=== PATIENT | male | born 1975 | race Caucasian/White ===

== ENCOUNTER 2023-11-30 21:49 | Emergency (ER) | payer MEDICAID, SELFPAY ==
[2023-11-30 21:50] VITALS: BP 161/107; PULSE 128; RESP 20; TEMP 37.2; O2SAT 98
--- OUTSIDE RECORDS SUMMARY | 2023-11-30 22:05 | XMS_ITS | Encounter Summary ---
Author Organization [facility] Address [address] [place] [address] Care Team Providers Care Federal Appellate Law Clerk Name Role Phone Kianna Moya AIRCRAFT MECHANIC ARMAMENT Primary Care Provider [phone] Reason for Visit * Reason Comments Wrist Pain Pt to ED with left w rist pain for past 2 weeks s/p being twisted Encounter Details Date Type Department Care Team (Late st Contact Info) Description 11/25/2009 9:42 EDT - 11/25/2009 11:03 EDT Emergency [facility] Emergency Department - [address] [address] Evaristo Lujan, PAJess [address] [place], [place] [id number] Emergency, MD Good Tendinitis of wrist Discharge Disposition: Home or Self Care Social History Tobacco Use Types Packs/Day Years Used Date Smoking Tobacco: Every Day Cigarettes 0.5 5 Alcohol Use Standard Drinks/Week Comments No 0 (1 standard drink = 0.6 oz pur e alcohol) Sex and Gender Information Value Date Recorded Sex Assigned at Not on file Gender Identity Not on file Sexual Orientation Not on file documented as of this encounter Last Filed Vital Signs Vital Sign Reading Time Taken Comments Blood Pressure 142/101 11/25/2009 0949 EDT Pulse 87 11/25/2009 0949 EDT Temperature 36.5 ??C (97.7 ??F) 11/25/2009 0949 EDT Respiratory Rate 16 11/25/2009 0949 EDT Oxygen Saturation 99% 11/25/2009 0949 EDT Inhaled Oxygen Concentration - - Weight - - Height - - Body Mass Index - - documented in this encounter Discharge Instructions * Attachments The following attachments cannot be sent through Care Everywhere. * TENDON INJURY (TENDINOPATHY): AFTER YOUR VISIT (TAJIK) documented in this encounter Medications at Time of Discharge Medication Sig Dispensed Refills Start Date End Date ibuprofen (MOTRIN) 600 mg tablet Take 1 Tab by mouth every 6 hours as needed for Pain. 30 Each 0 11/25/2009 clonazepam (KLONOPIN) 1 mg tablet Take 1 mg by mouth 2 times daily. documented as of this encounter Ordered Prescriptions Prescription Sig Dispensed Refills Start Date End Da te ibuprofen (MOTRIN) 600 mg tablet Take 1 Tab by mouth every 6 hours as needed for Pain. 30 Each 0 11/25/2009 documented in this encounter Discharge Disposition Disposition Code Departure Means Destination Comment s Home or Self Prison Pt ambulated out of dept in nad with steady gait. documented in this encounter ED Notes * Evaristo Lujan PA - 11/26/2009 1600 EDT DOS: 11/25/2009 Chief Complaint Patient presents with ??? Wrist Pain Pt to ED with left wrist pain for past 2 weeks s/p being twisted The patient is a 34 y.o. male who presents today with Wrist Pain Wrist Pain Patient is a 34-year-old male with approximately 2 weeks of left wrist pain. Pain started after he sprained it against a countertop. The pain has been getting slowly progressively worse it is sharp it is worse with movement slightly relieved with rest. Patient denies any fevers any chills any numbness or tingling. Review of Systems Review of systems: Constitutional: No fevers/chills Head/eyes/ears/nose/throat: No nosebleed/eyepain Respiratory: No shortness of breath Cardiologic: No chest pain Gastrointestinal: No abdominal pain/nausea/vomiting/diarrhea Genitourinay: No dysuria Muscle: Left wrist pain. Skin: No rash Neurological: No Headache Hematologic: No easy bruisability Psychologic: No confusion Physical Exam: Chief complaint reviewed Vitals signs reviewed Nurses note reviewed Well developed Head/eyes/ears/nose/throat:Normocephalic Conjunctiva normal Neck:supple Heart rate regular Chest:effort normal clear to auscultation Abdomen: Soft nontender positive bowel sounds Muscle: Left wrist: Positive pain along the Flexor carpi radialis. decreased ROM and strength secondary to pain N/V intact distally Neurologic: Non-focal Skin:warm and dry Psychological:Mood /affect normal Past Medical History Diagnosis Date ??? Back problem ??? Anxiety History reviewed. No pertinent past surgical history. No Known Allergies History Substance Use Topics ??? Tobacco Use: Yes -- 0.5 packs/day for 5 years ??? Alcohol Use: No History reviewed. No pertinent family history. Vital Signs Temp: 36.5 ??C (97.7 ??F) Temp src: Tympanic Pulse: 87 Resp: 16 SpO2: 99 % BP: 142/101 mmHg BP Device: BP Machine Patient Position: Sitting BP Cuff Location: Right arm O2 Device: None (Room air) Physical Exam Radiology orders: None Procedures ED Course: Patient placed in a wrist immobilizer Stable Previous medical record obtained and reviewed. Obtained hx from someone other than the patient. Discharge Prescriptions New Prescriptions IBUPROFEN (MOTRIN) 600 MG TABLET Take 1 Tab by mouth every 6 hours as needed for Pain. MDM3 1. Tendinitis of wrist (726.4W) PCP: KIANNA MOYA DO 11/26/2009 16:00 ED Attending Available for Supervision: Andrea Garnica documented in this encounter Miscellaneous Notes * Scanned Note-Null - Inpatient, Physician - 11/25/2009 0000 EDT documented in this encounter Plan of Treatment Not on file documented as of this encounter Visit Diagnoses Diagnosis Tendinitis of wrist Other tenosynovitis of hand and wrist documented in this encounter Discontinued Medications Medication Sig Discontinue Reason Start Date End Da te aspirin 325 mg EC tablet Take 650 mg by mouth daily. 11/25/2009 documented as of this encounter Care Teams Federal Appellate Law Clerk Relationship Specialty Start Date End Date Kianna Moya NP [address] [place] [phone] PCP - General 11/25/09 documented as of this encounter
--- OUTSIDE RECORDS SUMMARY | 2023-11-30 22:05 | XMS_ITS | Encounter Summary ---
Author Organization [facility] Address [address] [place] [id number] Care Team Providers Care Inspector Watch Parts Name Role Phone None, Provider Primary Care Provider Unavailabl e Reason for Visit * Reason Comments Back Pain chronic pain Encounter Details Date Type Department Care Team (Latest Contact Info) Description 08/11/2009 16:51 EDT - 08/11/2009 18:16 EDT Hospital Encounter [facility] [address], [place] [id number] Ana Bundy NP [address] [place] [phone] Chronic back pain Discharge Disposition: Home or Self Care Social [...] Sign Reading Time Taken Comments Blood Pressure 142/80 08/11/2009 1708 EDT Pulse 84 08/11/2009 1708 EDT Temperature 37.2 ??C (98.9 ??F) 08/11/2009 1708 EDT Respiratory Rate 16 08/11/2009 1708 EDT Oxygen Saturation - - Inhaled Oxygen Concentration - - Weight - - Height - - Body Mass Index - - documented in this encounter Medications at Time of Discharge Medication Sig Dispensed Refills Start Date End Date clonazepam (KLONOPIN) 1 mg tablet Take 1 mg by mouth 2 times daily. aspirin 325 mg EC tablet Take 650 mg by mouth daily. 11/25/2009 documented as of this encounter Discharge Disposition Disposition Code Departure Means Destination Home or Self Care documented in this encounter Procedure Notes * Inpatient, Physician - 08/22/2009 1041 EDTAssociated Order(s): ORDERS - SCANNED documented in this encounter ED Notes * Elizabeth Greco - 08/11/2009 1808 EDT PATIENT LEFT AGITATED WHEN TOLD HE WOULD NOT GET NARCOTICS.. * Ana Bundy NP - 08/11/2009 1738 EDT DOS: 08/11/2009 Chief Complaint Patient presents with ??? Back Pain chronic pain The patient is a 33 y.o. male who presents today with Back Pain HPI Comments: States he has chronic anxiety around hospitals and doctors--had to take 3 Clonazepam to come in here. He states he has an appointment with [facility] on August 28. Pain The history is provided by the patient. Back Pain This is a recurrent problem. The current episode started more than 1 week ago. The problem occurs constantly. The problem has been gradually worsening. Associated With: was born with a problem with his back, but does okay if he is working, but has not been working recently. thinks it is his girlfriend's bed that is causing the problem. The pain is at a severity of 10/10. Review of Systems Musculoskeletal: Positive for back pain. All other systems reviewed and are negative. Current outpatient prescriptions Medication Sig Dispense Refill ??? clonazepam (KLONOPIN) 1 mg tablet Take 1 mg by mouth 2 times daily. ??? aspirin 325 mg EC tablet Take 650 mg by mouth daily. No Known Allergies Past Medical History Diagnosis Date ??? Back problem ??? Anxiety History Substance Use Topics ??? Tobacco Use: Yes -- 0.5 packs/day for 5 years ??? Alcohol Use: No No family history on file. BP 142/80 Pulse 84 Temp(Src) 98.9 ??F (37.2 ??C) (Oral) Resp 16 Physical Exam Nursing note and vitals reviewed. Constitutional: Was asleep in slouching in chair when I came into room. Was quite groggy during the interview, though answered questions appropriately. Musculoskeletal: Did not complete full exam due to patient's agitation and overreaction to being touched and examined--everything was painful. Consult orders: None PCP: NO No results found for this visit on 08/11/09. Radiology orders: None Procedures Course: Patient was told that to get narcotics (he wanted Percodan) he would have to have a urine drug screen, which he was fine with, but did not want to wait for the results, wanted to leave and come back, which was not acceptable. I did check the [place] Prescription Monitoring website which showed only regular scripts for Clonazepam, which he states he takes 1-2 times a day for anxiety. Patient left very agitated and did not return. Encounter Diagnoses Code Name Primary? Qualifier ??? 724.5AW Chronic back pain Dr. Laura Peña was available for consultation during my care of this patient. MDM 08/11/2009 8:18 PM * Nilo Marx MA - 08/11/2009 1708 EDT Pt asked to put on a gown. documented in this encounter Plan of Treatment Not on file documented as of this encounter Procedures Procedure Name Priority Date/Time Associated Diagnosis Comments ORDERS - SCANNED 08/22/2009 10:4 1 EDT documented in this encounter Results * ORDERS - SCANNED (08/22/2009 10:41 EDT) 08/22/2009 10:4 1 EDT Narrative Procedure Note Inpatient, Physician - 08/22/2009 10:41 EDT Physician Inpatient MD ADMISSION ORDERAB LES documented in this encounter Visit Diagnoses Diagnosis Chronic back pain Backache, unspecified documented in this encounter Historical Medications * This list may reflect changes made after this encounter. Medication Sig Dispensed Refills Start Date End Date clonazepam (KLONOPIN) 1 mg tablet Take 1 mg by mouth 2 times daily. aspirin 325 mg EC tablet Take 650 mg by mouth daily. 11/25/2009 added in this encounter Care Teams Inspector Watch Parts Relationship Specialty Start Date End Date None, Provider PCP - General 08/11/09 11/24/09 documented as of this encounter
--- OUTSIDE RECORDS SUMMARY | 2023-11-30 22:05 | XMS_ITS | Clinical Summary ---
Author Organization [facility] Address [address] [place] [address] Care Team Providers Care Avionics Manager Name Role Phone Kary Lou FREIGHT CAR REPAIRER Primary Care Provider [phone] Allergies No known active allergies Medications Medication Sig Dispensed Refills Start Date End Date Status clonazepam (KLONOPIN) 1 mg tablet Take 1 mg by mouth 2 times daily. Active ibuprofen (MOTRIN) 600 mg tablet Take 1 Tab by mouth every 6 hours as needed for Pain. 30 Each 0 11/25/2009 Active Medical History Medical History Date Comments Back problem Anxiety Social History Tobacco Use Types Packs/Day Years Used Date Smoking Tobacco: Every Day Cigarettes 0.5 5 Alcohol Use Standard Drinks/Week Comments No 0 (1 standard drink = 0.6 oz pur e alcohol) Interpersonal Safety Answer Date Record ed Physically Hurt Never 2019 Verbally Threaten Not on file 2019 Sex and Gender Information Value Date Recorded Sex Assigned at Not on file Gender Identity Not on file Sexual Orientation Not on file Obstetrics History Last Filed Vital Signs Vital Sign Reading Time Taken Comments Blood Pressure 142/101 11/25/2009 0949 EDT Pulse 87 11/25/2009 0949 EDT Temperature 36.5 ??C (97.7 ??F) 11/25/2009 0949 EDT Respiratory Rate 16 11/25/2009 0949 EDT Oxygen Saturation 99% 11/25/2009 0949 EDT Inhaled Oxygen Concentration - - Weight - - Height - - Body Mass Index - - Plan of Treatment Health Maintenance Due Date Last Done Comments Hepatitis C Screen 1975 Hepatitis B Vaccine (1 of 3 - 19+ 3-dose series) 09/25 COVID-19 Vaccine (2022-24 season) 2022 Care Teams Avionics Manager Relationship Specialty Start Date End Date AlmaowKary NP [address] [place] [phone] PCP - General 11/25/09
--- OUTSIDE RECORDS SUMMARY | 2023-11-30 22:05 | XMS_ITS | Referral Summary ---
Author Organization [facility] Address [address] [place] [address] Care Team Providers Care Military Personnel Specialist Name Role Phone Kary Lou SETTER MACHINE Primary Care Provider [phone] Allergies No known active allergies Medications Medication Sig Dispensed Refills Start Date End Date Status clonazepam (KLONOPIN) 1 mg tablet Take 1 mg by mouth 2 times daily. Active ibuprofen (MOTRIN) 600 mg tablet Take 1 Tab by mouth every 6 hours as needed for Pain. 30 Each 0 11/25/2009 Active Social History Tobacco Use Types Packs/Day Years [...] on file Sexual Orientation Not on file Last Filed Vital Signs Vital Sign Reading Time Taken Comments Blood Pressure 142/101 11/25/2009 0949 EDT Pulse 87 11/25/2009 0949 EDT Temperature 36.5 ??C (97.7 ??F) 11/25/2009 0949 EDT Respiratory Rate 16 11/25/2009 0949 EDT Oxygen Saturation 99% 11/25/2009 0949 EDT Inhaled Oxygen Concentration - - Weight - - Height - - Body Mass Index - - Plan of Treatment Not on file Care Teams Military Personnel Specialist Relationship Specialty Start Date End Date EstefaníaorrowKary NP [address] [place] [phone] PCP - General 11/25/09
--- NOTE | 2023-11-30 22:30 | RT.EKG_ITS ---
APPROVED REPORT Exam: Resting ECG Reason for Exam: psyche Patient Location: E HR:106 bpm ECG Measurements Heart Rate 106 AXIS MO 156 P 54 QRSd 109 QRS 16 QT 348 T 29 QTc 462 Conclusion Sinus tachycardia...rate> 99 Physician: no stemi
--- NOTE | 2023-11-30 22:31 | ED.GENADUL_ITS ---
Discharge Plan Disposition Patient Disposition: Home Condition: Good Discharge Details Clinical Impression: Encounter for medical assessment Primary Care Provider: Unknown,Unknown ED Provider: Walter Lawrence Home Meds and New Rx's Prescriptions: No Action Unable to Obtain Discharge Instructions Additional Instructions: Please follow-up closely with your mental health advocates tomorrow. Please get plenty of rest. If you notice any worsening of your symptoms, or any new symptoms such as vomiting, diarrhea, fever, chills, shortness of breath, chest pain, numbness, weakness, or fainting , please return immediately to the emergency department for reevaluation. Please follow up with your primary care provider as soon as possible for reassessment and reevaluation. As always, it was a pleasure participating in your medical care today. HPI General Date/Time Provider Initiated Documentation: 11/30/23 22:02 . HPI Narrative: This is a 48-year-old male who is new to this hospital, but review of other documents throughout the state demonstrate a past medical history of reflux, depression, ADHD, previous tobacco use, hypertension associated with the medical system, who at some point in the past has been on citalopram, venlafaxine, sertraline, who presents today for evaluation and clearance. He is brought in by [facility] police. Per [facility] the patient made multiple 911 calls today, patient states that this was so that someone could come help my . I had to tell them that I was going to kill someone or hurt my and that was the only way that they would come to her house. He made these homicidal and suicidal ideations to 911 services. [facility] reports that this was around 8 PM. When they arrived he demonstrated concerning behaviors that [facility] felt was potentially psychiatric related. He was brought to the ER for further assessment. He denies any drug use or alcohol use. He denies going to a psychiatric facility in the past, however he does mention that he is aware of the psychiatric facilities in the state. Currently he denies any homicidal or suicidal ideations but does repeatedly make comments that he will hurt someone if I see these 2 food service supervisor again. He denies any other complaints at this time. He specifically denies any headache, chest pain or abdominal pain. Related Data Home Medications ?Medication ?Instructions ?Recorded ?Confirmed Unknown [Unable to Obtain] 11/30/23 11/30/23 Allergies Allergy/AdvReac Type Severity Reaction Status Date / Time No Known Allergies Allergy Unverified 11/30/23 21:56 General Stated Complaint: PsychEval DAO: 2 Review of Systems All systems reviewed & are unremarkable except as noted in HPI and below Exam Narrative Exam Narrative: 1.Const: Well-nourished, Well-developed, appearing stated age 2.Eyes: PERRL, no conjunctival injection, and symmetrical lids. 3.ENT: Atraumatic external nose and ears. Moist MM. Neck: Symmetric, trachea midline, No thyromegaly. 4.CVS: +S1/S2, No murmurs or gallops. Peripheral pulses 2+ and equal in all extremities. Brisk capillary refill in all extremities. 5.RESP: Unlabored respiratory effort. Clear to auscultation bilaterally. No wheezes rales or rhonchi 6.GI: Soft, Nontender/Nondistended, No hepatosplenomegaly. No guarding or rebound. 7.MSK: Normocephalic/Atraumatic, Extremities w/o deformity or ttp No cyanosis or clubbing, Normal movement of all extremities 8.Skin: Warm, Dry. No rashes or lesions. 9.Neuro: risk manager II-XII grossly intact. Sensation grossly intact, no focal neurologic deficits. 10.Psych: (AAO) x3. Patient is communicative. His energy level appears slightly heightened, but may be situational. A minimal amount of pressured speech is noted. Course Vital Signs Vital signs: Vital Signs Temperature 37.2 C 11/30/23 21:50 Pulse 128 H 11/30/23 21:50 Respiratory Rate 20 11/30/23 21:50 Blood Pressure 161/107 H 11/30/23 21:50 Pulse Oximetry 98 11/30/23 21:50 Temperature 37.2 C 11/30/23 21:50 Temperature Source Oral 11/30/23 21:50 Pulse 128 H 11/30/23 21:50 Respiratory Rate 20 11/30/23 21:50 Respiratory Effort Normal, Non-Labored 11/30/23 21:56 Blood Pressure 161/107 H 11/30/23 21:50 Blood Pressure Position Sitting 11/30/23 21:50 Pulse Oximetry 98 11/30/23 21:50 Oxygen Delivery Method Room Air 11/30/23 21:50 Oxygen Flow Rate 0 10/07/24 21:50 Pain Level 0 11/30/23 21:50 Medical Decision Making This is a 48-year-old male who is new to this hospital, but review of other documents throughout the state demonstrate a past medical history of reflux, depression, ADHD, previous tobacco use, hypertension associated with the medical system, who at some point in the past has been on citalopram, venlafaxine, sertraline, who presents today for evaluation and clearance. He is brought in by [facility] police. Per [facility] the patient made multiple 911 calls today, patient states that this was so that someone could come help my . I had to tell them that I was going to kill someone or hurt my and that was the only way that they would come to her house. He made these homicidal and suicidal ideations to 911 services. [facility] reports that this was around 8 PM. When they arrived he demonstrated concerning behaviors that P felt was potentially psychiatric related. He was brought to the ER for further assessment. He denies any drug use or alcohol use. He denies going to a psychiatric facility in the past, however he does mention that he is aware of the psychiatric facilities in the state. Currently he denies any homicidal or suicidal ideations but does repeatedly make comments that he will hurt someone if I see these 2 food service supervisor again. He denies any other complaints at this time. He specifically denies any headache, chest pain or abdominal pain. Exam is relatively benign. Patient has slightly pressured speech, questionable minimal flight of ideas, but he also just appears mildly heightened in general which may be secondary to the current situation. No focal evidence of active fulminant psychosis. I discussed the plan with the patient for medical clearance and he understands. We we will perform blood draw, urine drug screen test and EKG to evaluate for concerning etiology. He has no focal neurologic deficits no meningeal signs, no managements. Nothing to suggest massive tumor, bleed or meningitis/encephalitis. No fever to suggest infection. Patient is willingly consented to blood draw and urine. Patient has been seen and assessed by mental health. Patient's laboratory workup has returned, no significant abnormalities, patient is medically clear. No abnormalities to suggest meningitis, encephalitis, or significant electrolyte disorder. Urinalysis shows trace nitrites, but WBCs are negative, and he has no urinary UTI-like symptoms. Patient has been medically cleared. Alcohol level normal. EKG benign. Mental health feels that the patient is notably stable for continued outpatient management. Patient has been extremely reasonable while here and continues to reiterate a denial of homicidal or suicidal ideations. My assessment at this time does not show any evidence of threatening etiology based on her current clinical assessment and documentation. Patient at this time does not show clinical evidence that suggest that he would be a risk to himself or others. Mental health agrees with this standpoint and will follow-up with him closely tomorrow on an outpatient basis. Police also reviewed the scenario, and have offered to take him home and they feel comfortable with. However patient has declined. Patient will be discharged with close follow-up. No evidence at this time to suggest psychosis. I have extensively reviewed the treatment plan and discharge instructions with the patient. I have addressed all patient concerns at this time. The patient was made aware of what symptoms to monitor for that would warrant a return to the emergency department. Discussed the plan with the patient, they demonstrate verbal understanding and agreement with our assessment and plan at this time. The documentation in this chart was dictated using [employer] dictation software. Please excuse any dictation errors. Quality:SDOH Health Related Social Needs: No Data to Display PFSH All Active Problems (Updated 11/30/23 @ 23:41 by Walter Lawrence DO) Encounter for medical assessment (Acute) Social History Smoking/Tobacco Use Status: Current every day Tobacco Type: cigarettes Smoking risk assessment performed?: Yes Alcohol Intake: former Drug use: Daily Substance use type: marijuana Do you feel safe at home: Yes
[2023-11-30 22:43] LABS: Abs Immature Grans 0.03 10^3/uL (0.0-0.06); Absolute Monocyte Count 0.72 10^3/uL (0.1-0.8); Absolute Neutrophil Count 6.97 10^3/uL (1.2-6.7); Basophils % 0.6 %; Eosinophils % 1.7 %; HCT 43.5 % (40.0-50.0); HGB 14.8 g/dL (13.5-17.5); Immature Grans % 0.3 %; Lymphocytes % 26.7 %; MCH 29.9 pg (27.0-33.0); MCV 88 fL (80-95); MPV 9.2 fL (8.0-11.0); Monocytes % 6.6 %; Neutrophils % 64.1 %; Platelet Count 214 10^3/uL (130-400); RBC 4.95 10^6/uL (4.36-5.78); RDW 12.6 % (11.8-14.1); RDW-SD 40.7 fL; WBC 10.88 10^3/uL (4.4-10.8)
[2023-11-30 22:45] LABS: Absolute Basophil Count 0.07 10^3/uL (0.0-0.2); Absolute Eosinophil Count 0.18 10^3/uL (0.0-0.7)
[2023-11-30 23:03] VITALS: BP 155/109; PULSE 122; RESP 20; O2SAT 98
[2023-11-30 23:07] LABS: ALT 41 U/L (16-63); AST 48 U/L (15-37); Albumin 4.1 g/dL (3.4-5.0); Alkaline Phosphatase 89 U/L (46-116); Anion Gap 11.3 mmol/L (3-11); BUN 20 mg/dL (7-18); Bilirubin, Total 1.44 mg/dL (0.2-1.0); CO2 24.7 mmol/L (21.0-32.0); Calcium 8.9 mg/dL (8.5-10.1); Chloride 105 mmol/L (98-107); Estimated GFR 92.26 (mL/min/1.73m2); Glucose 108 mg/dL (74-106); Potassium 3.8 mmol/L (3.5-5.1); Sodium 141 mmol/L (136-145); TSH (W/Ref FT4) 2.65 uIU/mL (0.36-3.74); Total Protein 7.9 g/dL (6.4-8.2)
[2023-11-30 23:10] LABS: ETHANOL BLOOD < 3.0 mg/dL (<10)
[2023-11-30 23:12] LABS: Bilirubin Small (Negative); Blood Small (Negative); Clarity Clear (Clear); Glucose Negative (Negative); Ketones Trace mg/dL (Negative); Leukocyte Esterase Negative (Negative); Nitrite Positive (Negative); Specific Gravity >= 1.030 (1.005-1.025); Urobilinogen 0.2 mg/dL (Up to 0.2); pH 5.5 (5-8)
[2023-11-30 23:13] LABS: *AMPHETAMINES SCREEN URINE Negative (Negative); *BARBITURATES SCREEN URINE Negative (Negative); *BENZODIAZEPINES SCREEN URINE Positive (Negative); Cannabinoids THC Positive (Negative); Cocaine Screen,Urine Negative (Negative); METHADONE URINE SCREEN Negative (Negative); OPIATES URINE SCREEN Negative (Negative)
[2023-11-30 23:15] LABS: Bacteria Rare HPF (Negative); C & S Indicated? No; Casts 10-20 Hyaline LPF (Negative); Crystals Negative HPF (Negative); Epithelial Cells Negative HPF (Negative); Mucus Moderate (Negative); WBC 0-2 HPF (0-5)
[2023-11-30 23:16] LABS: Tricyclic Antidepressants Negative (Negative)
[2023-11-30 23:20] LABS: Salicylate 3.5 mg/dL (<2.8)
[2023-11-30 23:34] LABS: Acetaminophen < 2 ug/mL (10-30)
--- NOTE | 2023-12-02 14:16 | PDOC.MHCN_ITS ---
Date of service: 11/30/23 Time of Service: 22:36 Mental Health Emergency Note Release [facility] release signed:: Yes Reason for Visit In the last 2 weeks has the pt presented for ES prior to today?: No Plan/Disposition Recommended Disposition: [facility] Services (Mobile Crisis) [facility] Services: Other. Plan: The client was brought into [facility] by [facility] due to repeatedly calling 911 asking for a police response to his home for his girlfriends mental health. Prior to 11/30/23, the client was unknown to this commercial underwriter and the agency. The client appeared to this commercial underwriter as dirty, and was observed to have not showered in an extended period of time. The client appeared to this commercial underwriter as manic, and reported his has not slept since Thursday. This commercial underwriter and the Provider, Dr. Lawrence agreed that the client was not currently a danger to himself or other and needed to sleep prior to assessment. The client agreed to a safety plan and will come into the [address] [place] [address] building for assessment for himself and resources for his girlfriend Reports/communication Outcome discussed with: ED/Personnel
--- NOTE | 2023-12-02 14:16 | PDOC.MHCN ---
Date of service: 11/30/23 Time of Service: 22:36 Mental Health Emergency Note Release [facility] release signed:: Yes Reason for Visit In the last 2 weeks has the pt presented for ES prior to today?: No Plan/Disposition Recommended Disposition: [facility] Services (Mobile Crisis) [facility] Services: Other. Plan: The client was brought into [facility] by [facility] due to repeatedly calling 911 asking for a police response to his home for his girlfriends mental health. Prior to 11/30/23, the client was unknown to this publications writer and the agency. The client appeared to this publications writer as dirty, and was observed to have not showered in an extended period of time. The client appeared to this publications writer as manic, and reported his has not slept since Thursday. This publications writer and the Provider, Dr. Lawrence agreed that the client was not currently a danger to himself or other and needed to sleep prior to assessment. The client agreed to a safety plan and will come into the [address] [place] [address] building for assessment for himself and resources for his girlfriend Reports/communication Outcome discussed with: ED/Personnel
== END 2023-11-30 23:54 | disposition home or self-care (01) ==
PROVIDERS: Emergency Provider Student in an Organized Health Care Education/Training Program
DX: R41.82 Altered mental status, unspecified (principal); R00.0 Tachycardia, unspecified; I10 Essential (primary) hypertension; F90.9 Attention-deficit hyperactivity disorder, unspecified type; F17.210 Nicotine dependence, cigarettes, uncomplicated
CPT/HCPCS: 00123; 80053; 80307; 93005; 99284; 80320; 80329; 81003; 81015; 84443; 85025; 93010